=== PATIENT | male | born 1985 | race Caucasian/White ===

== ENCOUNTER 2024-03-13 23:35 | Emergency (ER) | payer SELFPAY ==
[~2024-03-13] VITALS: Ht 177.8 cm; Wt 90.7 kg
== END 2024-03-14 00:32 | disposition home or self-care (01) ==
LOC: ER 23:35
DX: S01.81XA Laceration without foreign body of other part of head, initial encounter (principal); Y04.8XXA Assault by other bodily force, initial encounter
CPT/HCPCS: 12011; 99282-25